=== PATIENT | female | born 1990 | race Caucasian/White ===

== ENCOUNTER 2017-01-06 06:49 | Emergency (ER) | payer OTHER ==
--- NOTE | 2017-01-06 07:31 | ER Document Report ---
ED GI/ - General Mode of Arrival: Ambulatory Information source: Patient TRAVEL OUTSIDE OF THE [place] IN LAST 30 DAYS: No - HPI Patient complains to provider of: Abdominal pain Onset: This morning Location: LLQ - radiating to right Associated symptoms: Other - see above Exacerbated by: Movement - General Chief Complaint: Abdominal Pain Stated Complaint: ABDOMINAL PAIN Time Seen by Provider: 01/06/17 07:17 Notes: Patient is a 26 year old female who presents to the ED with complaints of sharp pain around her left lower quadrant radiates towards her right side with onset 0430 this morning. Patient denies nausea, vomiting or diarrhea, constipation or dysuria. Patient has not taken anything for her pain. Patient states the pain is sharp and stabbing and has remained constant and is exacerbated by movement. Patient states the pain is different than with her menstrual periods. Patient states her periods are always normal, never late or early. She does not believe she is . Patient states she was diaphoretic this morning. Patient has no history of ovarian cysts. Patient denies vaginal discharge. PCP: Dr. Bailey [facility]. (SOBIA FARIAS) - Related Data Allergies/Adverse Reactions: No Known Allergies Allergy (Verified 01/06/17 07:18) Past Medical History - General Information source: Patient - Social History Smoking Status: Unknown if Ever Smoked Family History: Reviewed & Not Pertinent Patient has suicidal ideation: No Patient has homicidal ideation: No Renal/ Medical History: Denies: Hx Peritoneal Dialysis - Immunizations Hx Diphtheria, Pertussis, Tetanus Vaccination: Yes Review of Systems - Review of Systems Constitutional: No symptoms reported EENT: No symptoms reported Cardiovascular: No symptoms reported Respiratory: No symptoms reported Gastrointestinal: See HPI, Abdominal pain. denies: Diarrhea, Nausea, Vomiting, Constipation Genitourinary: See HPI. denies: Dysuria Female Genitourinary: See HPI. denies: , Irregular period, Vaginal discharge Musculoskeletal: No symptoms reported Skin: No symptoms reported Hematologic/Lymphatic: No symptoms reported Neurological/Psychological: No symptoms reported Physical Exam - General General appearance: Appears well, Alert In distress: None - HEENT Head: Normocephalic, Atraumatic Eyes: Normal Extraocular movements intact: Yes Pupils: PERRL - Respiratory Respiratory status: No respiratory distress Breath sounds: Normal - Cardiovascular Rhythm: Regular Heart sounds: Normal auscultation Murmur: No - Abdominal Inspection: Normal Distension: No distension Tenderness: Nontender - no RLQ, Tender - LLQ, mild. No: Guarding, Rebound, Other - Rigidity - Genitourinary External exam: Normal Vaginal bleeding: None Bimanuel exam: Other - tenderness with insertion of scope, palpable tenderness to left ovary, no discharge.. No: Cervical motion tender - Back Back: Normal - Extremities General upper extremity: Normal inspection, Normal ROM General lower extremity: Normal inspection, Normal ROM - Neurological Neuro grossly intact: Yes - Psychological Associated symptoms: Normal affect, Normal mood - Skin Skin Temperature: Warm Skin Moisture: Dry Skin Color: Normal Course - Re-evaluation Re-evalutation: 01/06/17 11:22 Patient presents emergency room woke up this morning with left-sided abdominal pain. Said she tried felt like she had a poop she tried and it became worse. She says she finished her menstrual cycle by a week to 2 weeks ago and denies a chance of being . She denies any vaginal bleeding or discharge or painful sex. She says the pain when you push on it radiates over near the bladder area no urinary symptoms. She denies a history of pelvic surgery endometriosis ovarian cyst. States she has not had a Pap smear or pelvic examination about 3 years. On examination well-appearing nontoxic mild left lower quadrant tenderness no guarding rebound rigidity no right-sided abdominal tenderness on pelvic examination tenderness in the left ovary ultrasound showing a 2 cm ovarian cyst. Patient is not has normal urinary evaluation no infection given Toradol prescription for Naprosyn follow primary care physician and discussed reasons for ED return sooner no concerns about torsion. (HEATH DOCKERY) - Vital Signs Vital signs: Temp Pulse Resp BP Pulse Ox 97.8 F 61 16 109/68 100 01/06/17 11:39 01/06/17 11:39 01/06/17 11:39 01/06/17 11:39 01/06/17 11:39 Discharge - Discharge Clinical Impression: acute left sided ovarian cyst Condition: Stable Disposition: HOME, SELF-CARE Additional Instructions: Ovarian Cyst Your examination shows the presence of an ovarian cyst. This is a ball of fluid attached to the ovary. Ovarian cysts in women of child-bearing age are usually innocent. However, the cyst may cause pain when it grows or bursts. An innocent ovarian cyst will usually go away by itself. When the cyst becomes painful, you should rest. Pain medication may be required. Some women find a hot water bottle soothing. The pain usually resolves within one or two days. After menopause, an ovarian cyst may mean a tumor, and requires more aggressive evaluation -- usually surgery is recommended to remove or biopsy the cyst. A very large cyst requires evaluation at any age. Most cysts (even the innocent ones) require follow-up examination. Call the doctor or return at any time if the pain increases significantly, if you become faint, or if you experience vaginal bleeding. Follow-up with your primary care physician in 3-4 days return for increasing worsening or new symptoms Prescriptions: Naproxen [Naprosyn 375 Mg Tablet] 375 mg PO DAILY #12 tablet Forms: Return to Work Nereyda Attestation: 01/06/17 11:22 I personally performed the services described in the documentation reviewed the documentation recorded by my scribe in my presence and it accurately and completely records my words and actions (HEATH DOCKERY) Nereyda Documentation - Scribe Written by Nereyda:: nereyda Wisdom, 01/06/2017, 0746 acting as scribe for :: Efrain
[2017-01-06 08:04] LABS: APPEARANCE,URINE CLEAR; BILIRUBIN,URINE NEGATIVE (NEGATIVE); GLUCOSE, URINE NEGATIVE (NEGATIVE); KETONES,URINE NEGATIVE (NEGATIVE); LEUKOCYTE ESTERASE,URINE NEGATIVE (NEGATIVE); NITRITE,URINE NEGATIVE (NEGATIVE); PROTEIN,URINE NEGATIVE (NEGATIVE); URINE SPECIFIC GRAVITY 1.018; UROBILINOGEN,URINE NEGATIVE mg/dL (<2.0)
[2017-01-06] MEDS ORDERED: KETOROLAC TROMETHAMINE 60 MG/2 ML SDV IM ONE (08:39)
[2017-01-06] MEDS ORDERED: KETOROLAC TROMETHAMINE 60 MG/2 ML SDV ONE (08:52)
--- NOTE | 2017-01-06 10:55 | RADIOLOGY REPORT (SQ) ---
EXAM DESCRIPTION: U/S NON OB PEL W/DOPPLER COMPLETED DATE/TIME: 01/06/2017 10:24 am REASON FOR STUDY: llq pain not COMPARISON: None. TECHNIQUE: Dynamic and static grayscale images acquired of the pelvis via transabdominal approach an d recorded on PACS. Additional selected color Doppler and spectral images recorded. LIMITATIONS: None. FINDINGS: UTERUS: Contour normal. No mass. ENDOMETRIAL STRIPE: No focal or generalized thickening. No masses. CERVIX: 2.2 cm. No nabothian cysts. RIGHT OVARY: No abnormal masses. RIGHT OVARY DOPPLER: Normal arterial vascular flow without evidence for torsion. LEFT OVARY: No abnormal masses. LEFT OVARY DOPPLER: There is a 22 x 19 x 21 mm complex cyst on the left ovary. FREE FLUID: None noted. OTHER: No other significant finding. MEASUREMENTS: UTERUS: 94 x 50 x 40 mm ENDOMETRIAL STRIPE: 4.3 mm RIGHT OVARY: 25 x 18 x 21 mm LEFT OVARY: 28 x 29 x 26 mm IMPRESSION: The study is essentially normal except for the presence of a 2 cm complex cyst in the le ft ovary that may contain some hemorrhage. Follow-up as clinically indicated. TECHNICAL DOCUMENTATION: JOB ID: [id number] [employer]- All Rights Reserved
[2017-01-06 11:42] VITALS: BP 109/68
[2017-01-06 12:50] LABS: CHLAM PCR NOT DETECTED (NOT DETECT)
== END 2017-01-06 11:42 | disposition home or self-care (01) ==
LOC: ER 06:49
DX: N83.202 Unspecified ovarian cyst, left side (principal); R10.32 Left lower quadrant pain
CPT/HCPCS: 99284; 96372; 87210; 81025; 81001; 87491; 87591; 76856; 93976; J1885

== ENCOUNTER 2017-06-04 20:17 | Emergency (ER) | payer OTHER ==
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
[2017-06-04 23:23] VITALS: BP 112/77
== END 2017-06-04 23:23 | disposition home or self-care (01) ==
LOC: ER 20:17
DX: S06.0X0A Concussion without loss of consciousness, initial encounter (principal); S16.1XXA Strain of muscle, fascia and tendon at neck level, initial encounter; V53.5XXA Driver of pick-up truck or van injured in collision with car, pick-up truck or van in traffic accident, initial encounter; R51 Headache; R11.0 Nausea; M79.1 Myalgia
CPT/HCPCS: 70450; 72040; 99284